=== PATIENT | female | born 1970 | race Native Hawaiian/Other Pacific Islander ===

== ENCOUNTER 2019-06-09 08:42 | Outpatient (CLI) | payer OTHER | END 2019-06-09 22:15 | disposition home or self-care (01) | LOC: MAMMO 08:42 | DX: Z12.31 Encounter for screening mammogram for malignant neoplasm of breast (principal) ==

== ENCOUNTER 2019-07-19 10:44 | Outpatient (CLI) | payer OTHER | END 2019-07-19 19:33 | disposition home or self-care (01) | LOC: MAMMO 10:44 | DX: R92.8 Other abnormal and inconclusive findings on diagnostic imaging of breast (principal) ==